=== PATIENT | male | born 1950 | race Caucasian/White ===

== ENCOUNTER 2017-07-12 11:17 | Emergency (ER) | payer MEDICAID, MEDICARE ==
[2017-07-12] MEDS ORDERED: Sodium Chloride 0.9% 1,000 ML IV ONE (12:28)
[2017-07-12] MEDS ORDERED: Morphine 5 MG/ML SDV IVPUSH ONE (13:02)
[2017-07-12] MEDS ORDERED: Morphine 10 MG/ML Syringe ONE ×2 (13:19→13:53)
--- NOTE | 2017-07-12 13:39 | ER ---
Date of Service: 07/12/2017 HISTORY OF PRESENT ILLNESS: A 66-year-old male who comes in by ambulance. The patient states he fell about a week ago. He has been just lying around his house since then. Someone came to check on him and found him in discomfort and called the flour tester , who came out and checked on him and who in turn called the ambulance. The patient states that his right shoulder hurts only when he moves it. If he is resting, it does not bother him. He denies any other pain. The patient does have a chronic history of alcohol abuse. He states that he has not drink any alcohol for maybe two days, he is not sure. The patient denies any visual changes. He denies any problems with headache, neck pain, chest pain or abdominal pain. He tells me that he only takes lisinopril for his blood pressure as the only medication that he takes. The patient lives alone. When asked what happened when he fell, he tells me he can't remember. OBJECTIVE: GENERAL APPEARANCE: The patient is awake and alert. He is pleasant and talkative. He is in no obvious distress at rest. VITAL SIGNS: Reviewed. The patient's blood pressure 133/51, he is afebrile. Physical exam, the patient has multiple abrasion injuries, some of these are scabbed over on his forehead, centrally located. They appear to be superficial. There is no sign of infection here. EYES: Pupils equal, round , and reactive to light. EOMs are roughly intact. EARS: TMs are normal. ORAL: Mucous membranes are moist. Tonsils not enlarged or injected. I see no sign of dental injury. NECK: Supple. LUNGS: Clear. CARDIAC: Heart sounds distinct without murmurs. The patient has a significant amount of bruising involving both shoulder and upper arm areas. He chooses not to move the right shoulder at all because he states it hurts. The left shoulder he can move slightly and there is an obvious deformity in the proximal area of the humerus. CMS of the forearms, wrist and hands are normal. Capillary refill is good on both hands involving the finger tips. ABDOMEN: Soft, nontender. Bowel sounds are present. SKIN: Warm and dry. LABORATORY DATA: Labs today, CBC shows a hemoglobin of 8.5, hematocrit 23.8, white count is normal at 9.4. PT, INR are normal. Comprehensive metabolic panel shows a BUN of 29, creatinine 1.33. EtOH is 1.0. CT of the head and neck are unremarkable. CT of the chest shows a right shoulder dislocation with a comminuted fracture of the right humeral head. There is also a fracture with displacement and angulation of the left humerus with mild comminution as well. There are hematomas and edema adjacent to both fractures, still waiting on the CT of the abdomen. DIAGNOSES: 1. Right shoulder dislocation with fracture of right humeral head. 2. Left humeral fracture with displacement and angulation. 3. Anemia due to recent blood loss most likely. 4. Dehydration, somewhat mild in nature. 5. History of alcohol abuse. TREATMENT PLAN: I did consult with Dr. Suarez from [facility] in [place], who accepted the patient. He will be transferred there by ground ambulance. We will give him Mprphine 5 mg for pain medication via IV before he leaves here and he is getting some normal saline at this time as well. We will start with a bolus of 500 mL and then reduce it down to 125 an hour. CRS/MODL /[id number] MTDLakisha
--- NOTE | 2017-07-12 14:29 | CT ---
DATE OF SERVICE: 07/12/17 CLINICAL DATA: fall UNENHANCED BRAIN CT: Multi slice acquisition through the brain without IV contrast was performed. No priors. There is diffuse cerebral atrophy. There is a cavum septum pellucidum and a cavum vergae. These are normal variants. No masses or mass effect. No intracranial hemorrhage. No evidence of acute or subacute infarct. The nasal bone is deviated to the left. There is a lucency through the distal nasal bone consistent with a chronic fracture. No acute fractures. IMPRESSION: No acute intracranial abnormalities. [id number] [facility]
--- NOTE | 2017-07-12 14:34 | CT ---
DATE OF SERVICE: 07/12/17 CLINICAL DATA: fall with multiple injuries. CERVICAL SPINE CT: Multislice axial acquisition was performed. Axial images and sagittal and coronal reformations are reviewed. The vertebral bodies are of average height. No acute fracture or dislocation. There is very slight anterolisthesis of C2 on C3. There is also slight anterolisthesis of C5 on C6. There is degenerative disc disease at multiple levels. There is facet joint hypertrophy at multiple levels and uncinate joint hypertrophy at multiple levels. There is a small sclerotic focus within the right lamina of C2. There is also a small sclerotic focus within the odontoid process of C2. These are probably bone islands. Sclerotic metastatic disease should at least be considered. There is dense calcification in the region of the carotid bulbs bilaterally. The soft tissues are otherwise unremarkable. IMPRESSION: No acute abnormalities. [id number] [facility]
--- NOTE | 2017-07-12 14:41 | CT ---
DATE OF SERVICE: 07/12/17 CLINICAL DATA: Fall with multiple injuries. UNENHANCED CHEST CT: Multislice acquisition through the chest without IV contrast was performed. No priors. Motion artifact does degrade image quality. There are mild emphysematous changes throughout both lungs. The lungs are otherwise clear. No areas of consolidation. No pneumothorax. No pleural effusions. The heart size is normal. There are coronary artery calcifications. No significant pericardial effusion. There are atherosclerotic changes of the thoracic aorta. No aneurysm. No hilar or mediastinal adenopathy. There is anterior dislocation of the right glenohumeral joint with anterior dislocation of the humeral head with respect to the glenoid. There is also a comminuted fracture involving the greater tuberosity and lateral aspect of the humeral head on the right. There is adjacent hematoma. No displaced rib fractures identified. No other significant findings. IMPRESSION: Fracture dislocation of right shoulder. Other nonacute findings as discussed above. UNENHANCED ABDOMEN AND PELVIC CT: Multislice acquisition through the abdomen and pelvis without IV or oral contrast was performed. Comparison is made to a prior lumbar spine dated 07/06/16. The lung bases are clear. The unenhanced liver is normal size. There are multiple sharply transcribed fluid density lesions within the left lobe of the liver medial segment consistent in appearance with benign hepatic cysts. The largest measures 11 mm in diameter. No other focal hepatic lesions. The gallbladder is mildly distended. It is otherwise unremarkable. No calcified gallstones. The spleen appears normal. The pancreas appears normal. The right and left adrenals appear normal. The right and left kidneys appear normal. No nephrocalcinosis or nephrolithiasis. No hydronephrosis or hydroureter. The bladder is partially fluid-filled. It appears normal. There are multiple calcifications within the prostate consistent with chronic prostatitis. The appendix is not clearly seen. There are multiple surgical clips in the right pelvis most likely related to prior appendectomy. No free air. No free fluid. No dilated loops of bowel. No adenopathy. There are atherosclerotic changes of the abdominal aorta. The aorta is mildly dilated distally just proximal to the bifurcation. It measures 2.8 cm in diameter. The proximal iliacs are also mildly dilated. There is compression deformity of the L1 vertebra. It is unchanged in appearance from the prior exam dated June of 2016. No acute fractures. No other significant findings. [id number] [facility]
--- NOTE | 2017-07-13 09:58 | CT ---
DATE OF SERVICE: 07/13/27 CLINICAL DATA: FALL RIGHT SHOULDER CT: Multislice axial acquisition was performed. Axial images and sagittal and coronal reformations are reviewed. There is anterior dislocation of the right glenohumeral joint with anterior dislocation of the humeral head with respect to the glenoid. There is a comminuted avulsion of the lateral aspect of the humeral head consistent with a Hill-Sachs deformity/fracture. There are osteoarthritic changes of the AC joint. No other acute abnormalities. IMPRESSION: Fracture dislocation as discussed above. [id number] [facility]
--- NOTE | 2017-07-13 10:01 | CT ---
DATE OF SERVICE: 07/12/17 CLINICAL DATA: FALL LEFT SHOULDER CT: Multislice axial acquisition was performed. Axial images and sagittal and coronal reformations are reviewed. There is a comminuted displaced fracture through the proximal humeral diaphysis. There is lateral displacement and medial angulation of the distal fragments with respect to the proximal. There are osteoarthritic changes of the AC and glenohumeral joints. No other acute abnormalities. IMPRESSION: Comminuted displaced fracture left proximal humerus. [id number] [facility]
== END 2017-07-12 13:55 ==
LOC: LB.ED 11:17
DX: S42.202A Unspecified fracture of upper end of left humerus, initial encounter for closed fracture (principal); S42.201A Unspecified fracture of upper end of right humerus, initial encounter for closed fracture; S00.81XA Abrasion of other part of head, initial encounter; E86.0 Dehydration; W19.XXXA Unspecified fall, initial encounter; Y92.009 Unspecified place in unspecified non-institutional (private) residence as the place of occurrence of the external cause
CPT/HCPCS: 36415; 70450; 71250; 72125; 73200-LT; 73200-RT; 74176; 80053; 85025; 85610; 96360; 99284; 99285-25; A0425; A0429; G0480; J2270; J7040

== ENCOUNTER 2017-08-15 17:39 | Emergency (ER) | payer MEDICARE ==
--- NOTE | 2017-08-16 04:19 | ER ---
DATE OF SERVICE: 08/15/2017 HPI: A 66-year-old male who comes in with social science professor to have a wound on his left upper arm examined and covered with a dressing. The patient has had this wound for a couple of weeks. He thinks he is not real sure. He was seen earlier today in the clinic. Dr. Rodriguez examined him and started him on Levaquin. The patient recently underwent bilateral shoulder surgery a few weeks ago. He again is not accurate with any details or dates and he thinks that this open area has been present for a couple of weeks. The patient tells me that he feels okay. He is not having any pain. He tells me his only medication that he has been taking lately is lisinopril. OBJECTIVE: GENERAL APPEARANCE: The patient is awake and alert. No obvious distress. VITAL SIGNS: Reviewed. He is afebrile. EXTREMITIES: Examining left upper arm reveals a chronic ulcerated area that is circular and about 2.5 cm in diameter. There is some packing present, and there is some yellow tinged drainage present as well. There is no sign of acute infection here. The patient has a well-healed scar on the superior lateral aspect of the shoulder left shoulder that is well healed without any sign of inflammation or infection. DIAGNOSIS: Wound recheck to left upper arm. TREATMENT PLAN: Nursing staff applied a pressure dressing using an ABD, covered with Beti in a circumferential manner. The patient tolerated this well. I advised patient that he needs to keep the dressing on until he is rechecked. He does have an appointment coming up Tuesday in the clinic for dressing change, and he has another appointment coming up in [place], Tuesday, I believe. I did also speak with Dr. Rodriguez briefly, who informed me that the patient was started on Levaquin today and the dressing changes only should need at this time. CRS/MODL /[id number] ROMEO
== END 2017-08-15 17:55 | disposition home or self-care (01) ==
LOC: LB.ED 17:39
DX: Z48.00 Encounter for change or removal of nonsurgical wound dressing (principal); L03.114 Cellulitis of left upper limb
CPT/HCPCS: 99282

== ENCOUNTER 2017-08-27 09:35 | Emergency (ER) | payer MEDICARE ==
--- NOTE | 2017-08-27 10:41 | EDM.PDOC ---
ED HPI GENERAL MEDICAL PROBLEM - General Time Seen by Provider: 08/27/17 09:35 Source of Information: Reports: Patient History Limitations: Reports: No Limitations - History of Present Illness INITIAL COMMENTS - FREE TEXT/NARRATIVE: Pt claims that his left elbow hurts since today morning. pain radiates form the medial aspect of the elbow into his medial 2 finger if he tries to straighten his forearm. He has been having chronic wound on the left upper arm, for which he had dressing today. No trauma. No other complaints. No fever or chills. No tingling or numbness. Onset: Today Onset Date: 08/27/17 Onset Time: 07:00 Location: Reports: Upper Extremity, Left Severity: Moderate Associated Symptoms: Denies: Fever/Chills, Headaches, Nausea/Vomiting, Rash, Seizure, Shortness of Breath, Syncope, Weakness Left Elbow Pain Score (Numeric/FACES): 4 - Related Data Allergies Allergy/AdvReac Type Severity Reaction Status Date / Time No Known Allergies Allergy Verified 08/27/17 10:11 Home Meds: Home Meds Lisinopril 10 mg PO DAILY 11/01/14 [History] Past Medical History HEENT History: Reports: Hard of Hearing Cardiovascular History: Reports: None, Hypertension Respiratory History: Reports: None Gastrointestinal History: Reports: Other (See Below) Other Gastrointestinal History: Currently has inguinal hernia. Here for scheduled surgery today. Has had 2 to 3 weeks Musculoskeletal History: Reports: Arthritis, Back Pain, Chronic Other Musculoskeletal History: compression fracture Neurological History: Reports: Concussion Oncologic (Cancer) History: Reports: None - Infectious Disease History Infectious Disease History: Reports: Mumps - Past Surgical History Cardiovascular Surgical History: Reports: None Neurological Surgical History: Reports: None Other Neurological Surgeries/Procedures: concusion history: 4-5 per patient Musculoskeletal Surgical History: Reports: Arthroscopic Knee Other Musculoskeletal Surgeries/Procedures:: compression fracture: years ago Social & Family History - Family History Cardiac: Reports: Hypertension GI: Reports: Bowel Obstruction, Other (See Below) Other GI Family History: hx colostomy, brother : Reports: Renal Disease/Insufficiency Other Family History: Brother with hx renal problems OBGYN: Reports: None Musculoskeletal: Reports: Arthritis, Back pain, Chronic Neurological: Reports: None Psychiatric: Reports: None Hematologic: Reports: Anemia Dermatologic: Reports: None Oncologic: Reports: Bladder, Colon - Tobacco Use Smoking Status *Q: Current Every Day Smoker Years of Tobacco use: 42 Packs/Tins Daily: 1 Used Tobacco, but Quit: No Second Hand Smoke Exposure: No - Caffeine Use Caffeine Use: Reports: None - Alcohol Use Days Per Week of Alcohol Use: 5 Number of Drinks Per Day: 2 Total Drinks Per Week: 10 - Recreational Drug Use Recreational Drug Use: No Recreational Drug Type: Reports: Marijuana/Hashish Recreational Drug Use Frequency: Socially ED ROS GENERAL - Review of Systems Review Of Systems: See Below Constitutional: Denies: Fever, Chills HEENT: Denies: Rhinitis, Throat Swelling Respiratory: Denies: Cough, Sputum Cardiovascular: Denies: Chest Pain, Lightheadedness GI/Abdominal: Denies: Nausea, Vomiting : Denies: Flank Pain, Frequency Musculoskeletal: Denies: Joint Pain, Joint Swelling Skin: Reports: Wound. Denies: Pruritis, Rash Neurological: Denies: Dizziness, Headache, Numbness, Tingling, Weakness ED EXAM, GENERAL - Physical Exam Exam: See Below Exam Limited By: No Limitations General Appearance: Alert, WD/WN, No Apparent Distress Eye Exam: Bilateral Eye: EOMI, PERRL Ears: Normal External Exam, Normal Canal, Hearing Grossly Normal, Normal TMs Ear Exam: Bilateral Ear: Auricle Normal, Canal Normal, TM normal Nose: Normal Inspection, Normal Mucosa, No Blood Throat/Mouth: Normal Inspection, Normal Lips, Normal Teeth, Normal Gums, Normal Oropharynx, Normal Voice, No Airway Compromise Head: Atraumatic, Normocephalic Neck: Normal Inspection, Supple, Non-Tender, Full Range of Motion Respiratory/Chest: No Respiratory Distress, Lungs Clear, Normal Breath Sounds, No Accessory Muscle Use, Chest Non-Tender Cardiovascular: Normal Peripheral Pulses, Regular Rate, Rhythm, No Edema, No Gallop, No JVD, No Murmur, No Rub Extremities: Normal Range of Motion, Normal Capillary Refill, Other (left arm: there is a clean dressing over the upper arm. Left elbow: Appears normal to inspection. HE does have good ROM at the elbow. He get sudden sharp pain when he over extends the elbo. Normal exam of left hand). No: Pedal Edema Neurological: Alert, Oriented, CN II-XII Intact, Normal Cognition, Normal Gait, Normal Reflexes, No Motor/Sensory Deficits Course - Vital Signs Text/Narrative:: Pt and his sister reassured that he has developed ulnar neuritis. As this symptoms started today morning. It does appear like he might have developed compression of the left ulnar nerve at elbow, from sleeping wrongly over night. Pt reassured, Arm sling applied. followup in clinic next week if symptoms persist. Last Recorded V/S: Last Vital Signs Temp Pulse 80 08/27/17 10:17 Resp 20 08/27/17 10:17 BP Pulse Ox Departure - Departure Time of Disposition: 10:00 Disposition: Home, Self-Care 01 Condition: Fair Clinical Impression: Neuritis of left ulnar nerve - Discharge Information Referrals: PCP,None [Primary Care Provider] - - Problem List & Annotations (1) Neuritis of left ulnar nerve SNOMED Code(s): 59989353 Code(s): G56.22 - LESION OF ULNAR NERVE, LEFT UPPER LIMB Status: Acute - Problem List Review Problem List Initiated/Reviewed/Updated: Yes - Assessment/Plan Assessment:: Left ulnar neuritis Plan: Pt and his sister reassured that he has developed ulnar neuritis. As this symptoms started today morning. It does appear like he might have developed compression of the left ulnar nerve at elbow, from sleeping wrongly over night. Pt reassured, Arm sling applied. followup in clinic next week if symptoms persist.
== END 2017-08-27 09:50 | disposition home or self-care (01) ==
LOC: LB.ED 09:35
DX: G56.22 Lesion of ulnar nerve, left upper limb (principal); I10 Essential (primary) hypertension; F17.210 Nicotine dependence, cigarettes, uncomplicated; Z79.899 Other long term (current) drug therapy
CPT/HCPCS: 99282; 99283

== ENCOUNTER 2018-08-31 10:11 | Day surgery (SDC) | payer MEDICAID, MEDICARE, OTHER ==
[~2018-08-31 10:11] MED LIST: Metoclopramide 10 MG/2 ML SDV IV PRN
[2018-08-31] MEDS: Sodium Chloride 0.9% 1,000 ML IV SCH (10:56)
[2018-08-31] MEDS ORDERED: Propofol 200 MG/20 ML SDV ONE (12:45)
[2018-08-31 13:35] VITALS: BP 118/70
--- NOTE | 2018-08-31 15:43 | OR ---
DATE OF OPERATION: 08/31/2018 PREOPERATIVE DIAGNOSIS: Personal history of colon polyps and family history of colon cancer. POSTOPERATIVE DIAGNOSIS: Personal history of colon polyps and family history of colon cancer. PROCEDURE: Colonoscopy with polypectomy. ANESTHESIA: MAC. ESTIMATED BLOOD LOSS: Minimal. COMPLICATIONS: None. INDICATION FOR THE PROCEDURE: The patient is a 67-year-old male who has had previous colonoscopy and was found to have 3 polyps previously. Denies any change in bowel habits since that time. He does have a brother who does have colon cancer. The patient is here today for surveillance colonoscopy. DESCRIPTION OF PROCEDURE: Informed consent was obtained from the patient. The patient was taken to the operating room and placed on the table in left lateral decubitus position. Monitored anesthesia care was administered. Digital rectal exam was performed and was normal. Colonoscope then advanced through the anus and directed toward the cecum. Cecum was reached and identified by appendiceal orifice and ileocecal valve. Colonoscope was then slowly withdrawn. He did have 1 small sessile polyp in the distal sigmoid colon, removed by hot biopsy polypectomy. Blood loss was minimal. Colonoscope was further withdrawn. Retroflexion performed in the rectum was also otherwise unremarkable. Colonoscope was then withdrawn. The patient tolerated the procedure well and was brought to recovery room in good condition. FINDINGS: Sigmoid colon polyp. RECOMMENDATIONS: Would recommend repeat surveillance colonoscopy in 5 years due to family history and polyps. SARIKA /[id number]
== END 2018-08-31 14:24 | disposition home or self-care (01) ==
LOC: LB.SDS 10:11
PROVIDERS: ATTEND Surgery
DX: Z12.11 Encounter for screening for malignant neoplasm of colon (principal); D12.5 Benign neoplasm of sigmoid colon; Z86.010 Personal history of colon polyps; Z80.0 Family history of malignant neoplasm of digestive organs; I10 Essential (primary) hypertension; F17.200 Nicotine dependence, unspecified, uncomplicated; Z79.899 Other long term (current) drug therapy
CPT/HCPCS: 88305; J2704; J7030

== ENCOUNTER 2024-06-28 10:03 | Emergency (ER) | payer MEDICARE ==
[2024-06-28 10:25] VITALS: BP 158/82; PULSE 82
[2024-06-28] MEDS: Ketorolac 30 MG/ML SDV IM ONE (10:37)
== END 2024-06-28 11:00 | disposition home or self-care (01) ==
LOC: LB.ED 10:03
DX: S80.01XA Contusion of right knee, initial encounter (principal); S00.81XA Abrasion of other part of head, initial encounter; I10 Essential (primary) hypertension; F17.210 Nicotine dependence, cigarettes, uncomplicated; Z79.899 Other long term (current) drug therapy; W00.0XXA Fall on same level due to ice and snow, initial encounter
CPT/HCPCS: 73560-RT; 96372; 99283; J1885